=== PATIENT | male | born 1960 | race Caucasian/White ===

== ENCOUNTER 2019-07-01 15:01 | Inpatient (IN) | payer OTHER ==
[~2019-07-01] VITALS: Ht 175.3 cm; Wt 83.5 kg
[2019-07-01] MEDS ORDERED: HYDROCODONE/APAP 5-325MG TABLET PO ONE (16:15)
[2019-07-01] MEDS: LIDOCAINE HCL 2% 20 ML VIAL TP ONE ×2 (16:15→16:54)
[2019-07-01] MEDS ORDERED: LET TOPICAL SOLUTION 8 ML UDC TP ONE (16:15)
--- NOTE | 2019-07-01 16:15 | NUR ---
Dr macias at the bedside for MSE.
[2019-07-01] MEDS ORDERED: HYDROCODONE/APAP 5-325MG TABLET ONE (16:42)
[2019-07-01] MEDS ORDERED: SODIUM BICARBONATE 4.2 % (NEUT) 5 ML VIAL ONE (16:42)
[2019-07-01] MEDS ORDERED: LIDOCAINE HCL 2% 20 ML VIAL ONE (16:43)
[2019-07-01] MEDS ORDERED: LET TOPICAL SOLUTION 8 ML UDC ONE (16:43)
[2019-07-01] MEDS: SODIUM BICARBONATE 4.2 % (NEUT) 5 ML VIAL TP ONE ×2 (16:54→18:15)
--- NOTE | 2019-07-01 17:36 | NUR ---
Dr Pascual spoke to Dr Roy(Orthopedics), regarding pt's FA Lac.
[2019-07-01] MEDS ORDERED: CEFTRIAXONE 1 G in IV DEXTROSE 5% 50 ML IV ONE (18:00)
[2019-07-01] MEDS ORDERED: CEFTRIAXONE 1 G VIAL ONE (18:07)
[2019-07-01 18:09] LABS: BASOPHILS % (AUTO) 0.4 % (0.0-2.0); EOSINOPHILS # (AUTO) 0.1 K/uL (0.0-0.7); EOSINOPHILS % (AUTO) 1.1 % (0.0-7.0); HEMATOCRIT 41.7 % (36.7-47.1); HEMOGLOBIN 14.1 g/dL (12.5-16.3); LYMPHOCYTES # (AUTO) 0.8 K/uL (20.0-40.0); LYMPHOCYTES % (AUTO) 11.3 % (20.5-51.5); MEAN CORPUSCULAR HEMOGLOBIN 31.2 uug (23.8-33.4); MEAN CORPUSCULAR HGB CONC 34 g/dL (32.5-36.3); MEAN CORPUSCULAR VOLUME 91.8 fL (73.0-96.2); MONOCYTES # (AUTO) 0.5 K/uL (2.0-10.0); MONOCYTES % (AUTO) 6.5 % (0.0-11.0); NEUTROPHILS # (AUTO) 6.1 K/uL (1.8-8.9); NEUTROPHILS % (AUTO) 80.7 % (38.5-71.5); PLATELET COUNT (AUTO) 195 K/uL (152-348); RED BLOOD CELL COUNT(AUTO) 4.54 MIL/uL (4.06-5.63); WHITE BLOOD COUNT (AUTO) 7.5 K/uL (3.6-10.2)
[2019-07-01 18:19] LABS: CREATININE 1.2 mg/dL (0.6-1.3); POTASSIUM 4.3 mmol/L (3.5-5.1)
[2019-07-01 18:24] LABS: BILIRUBIN,TOTAL 0.3 mg/dL (0.2-1.0); TOTAL PROTEIN, SERUM 7.7 g/dL (6.4-8.2)
--- NOTE | 2019-07-01 20:00 | NUR ---
transfered to 3rd floor med surg via [facility] with no distress noted.
[2019-07-01] MEDS ORDERED: Z GUARD REMEDY PASTE 57 GM TUBE TOP PRN (20:45)
[2019-07-01] MEDS ORDERED: ZOLPIDEM 5 MG TABLET PO PRN (20:45)
[2019-07-01] MEDS ORDERED: ONDANSETRON 4 MG/2 ML VIAL IV PRN (20:45)
[2019-07-01 21:00] VITALS: BP 140/86
[2019-07-01] MEDS: MORPHINE SULFATE 2 MG/1 ML DISP.SYRIN IV PRN (21:45)
--- NOTE | 2019-07-01 22:00 | NUR ---
Received patient from ER via [facility], accompanied by ER nurse at around 2054. Pt is in stable condition, with L arm wrapped in Kerlix. Verbalized pain at 8/10, PRN pain medications given and appears to be effective at this time. All admission orders noted and carried out. All belongings accounted for. Full assessment done and documented. No skin issues other than L arm, unable to take any photos because advised to keep dressings in place until Ortho visit in AM. Kept comfortable. Oriented to facility and call light. Bed kept locked in place. Fall and safety precautions maintained. Will continue to monitor.
[2019-07-02] VITALS (8 sets, daily range): BP systolic 114–151; BP diastolic 78–90
[2019-07-02] MEDS: MORPHINE SULFATE 2 MG/1 ML DISP.SYRIN IV PRN (05:24)
[2019-07-02 07:06] LABS: BASOPHILS % (AUTO) 0.7 % (0.0-2.0); EOSINOPHILS # (AUTO) 0.2 K/uL (0.0-0.7); EOSINOPHILS % (AUTO) 2.8 % (0.0-7.0); HEMATOCRIT 40.9 % (36.7-47.1); HEMOGLOBIN 13.9 g/dL (12.5-16.3); LYMPHOCYTES # (AUTO) 1.4 K/uL (20.0-40.0); LYMPHOCYTES % (AUTO) 23.9 % (20.5-51.5); MEAN CORPUSCULAR HEMOGLOBIN 31.5 uug (23.8-33.4); MEAN CORPUSCULAR HGB CONC 34 g/dL (32.5-36.3); MEAN CORPUSCULAR VOLUME 92.9 fL (73.0-96.2); MONOCYTES # (AUTO) 0.6 K/uL (2.0-10.0); MONOCYTES % (AUTO) 10.2 % (0.0-11.0); NEUTROPHILS # (AUTO) 3.5 K/uL (1.8-8.9); NEUTROPHILS % (AUTO) 62.4 % (38.5-71.5); PLATELET COUNT (AUTO) 177 K/uL (152-348); RED BLOOD CELL COUNT(AUTO) 4.41 MIL/uL (4.06-5.63); WHITE BLOOD COUNT (AUTO) 5.7 K/uL (3.6-10.2)
[2019-07-02] MEDS ORDERED: POLYMYXIN B SULFATE 500,000 UNITS, BACITRACIN 50,000 UNITS, NORMAL SALINE 20 ML MC ONE ×3 (07:15)
[2019-07-02 07:23] LABS: BILIRUBIN,TOTAL 0.5 mg/dL (0.2-1.0); CREATININE 1.2 mg/dL (0.6-1.3); MAGNESIUM 1.9 mg/dL (1.8-2.4); PHOSPHOROUS 3.7 mg/dL (2.5-4.9); POTASSIUM 3.9 mmol/L (3.5-5.1); TOTAL PROTEIN, SERUM 7.2 g/dL (6.4-8.2)
--- NOTE | 2019-07-02 08:18 | NUR ---
Awake, alert, oriented x 4. LFA wound with dressing. NPO maintained. Consent for I & D signed by patient. To OR
[2019-07-02] MEDS ORDERED: VANCOMYCIN 1000 MG VIAL ONE (08:34)
[2019-07-02] MEDS ORDERED: FENTANYL CITRATE 100 MCG/2 ML AMPUL ONE (10:03)
[2019-07-02] MEDS ORDERED: KETOROLAC TROMETHAMINE 30 MG INJ ONE (10:06)
[2019-07-02] MEDS ORDERED: SEVOFLURANE 250 ML BOTTLE ONE (10:30)
[2019-07-02] MEDS ORDERED: MORPHINE SULFATE 2 MG/1 ML DISP.SYRIN IV PRN (10:30)
--- NOTE | 2019-07-02 11:30 | NUR ---
Received from recovery this S/P I&D of left arm. Awake, alert, oriented x4. Vital signs taken and recorded. LFA wound with sutures covered with Mepilex, dry and clean, elevated over pillow. IVF started as ordered. Started on liquids then advanced to regular diet.
[2019-07-02] MEDS: POTASSIUM CHLORIDE 20 MEQ in IV D5 1/2 NS 1000 ML 1,000 ML IV PRN (11:31)
[2019-07-02] MEDS ORDERED: LIDOCAINE-MPF 2% 5 ML VIAL MC ONE (15:19)
[2019-07-02] MEDS ORDERED: PROPOFOL 200 MG/20 ML BOTTLE IV ONE (15:19)
[2019-07-02] MEDS: HYDROCODONE/APAP 10-325 MG TABLET PO PRN (17:39)
[2019-07-02] MEDS ORDERED: CEFTRIAXONE 1 G in IV DEXTROSE 5% 50 ML IV SCH (18:00)
--- NOTE | 2019-07-02 18:29 | NUR ---
Complained of pain, [place] po given. LFA + pulses, good sensation, Elevated over pillow
--- NOTE | 2019-07-02 19:30 | NUR ---
RECEIVED PT AWAKE, ALERT AND ORIENTEDX4. PT IN NO ACUTE DISTRESS. IV INTACT. SAFETY AND COMFORT PROVIDED. ALL NEEDS ARE MET. WILL CONTINUE TO MONITOR.
[2019-07-03] MEDS: HYDROCODONE/APAP 10-325 MG TABLET PO PRN ×2 (00:58→10:33)
[2019-07-03] MEDS: POTASSIUM CHLORIDE 20 MEQ in IV D5 1/2 NS 1000 ML 1,000 ML IV PRN (01:03)
[2019-07-03 05:49] VITALS: BP 118/77
--- NOTE | 2019-07-03 05:50 | NUR ---
PT SLEPT INTERMITTENTLY. PT IN NO ACUTE DISTRESS. IV INTACT. PRESCRIBED MEDICATION GIVEN AND PT TOLERATED IT WELL. PAIN MANAGEMENT DONE.SAFETY AND COMFORT PROVIDED. ALL NEEDS ARE MET. WILL ENDORSE TO INCOMING NURSE FOR CONTINUITY OF CARE.
[2019-07-03 06:11] LABS: BASOPHILS % (AUTO) 0.3 % (0.0-2.0); EOSINOPHILS # (AUTO) 0.1 K/uL (0.0-0.7); EOSINOPHILS % (AUTO) 2.7 % (0.0-7.0); HEMATOCRIT 39.6 % (36.7-47.1); HEMOGLOBIN 13.2 g/dL (12.5-16.3); LYMPHOCYTES # (AUTO) 1.1 K/uL (20.0-40.0); LYMPHOCYTES % (AUTO) 23.8 % (20.5-51.5); MEAN CORPUSCULAR HEMOGLOBIN 31.1 uug (23.8-33.4); MEAN CORPUSCULAR HGB CONC 33 g/dL (32.5-36.3); MEAN CORPUSCULAR VOLUME 93.2 fL (73.0-96.2); MONOCYTES # (AUTO) 0.5 K/uL (2.0-10.0); MONOCYTES % (AUTO) 10.2 % (0.0-11.0); PLATELET COUNT (AUTO) 168 K/uL (152-348); RED BLOOD CELL COUNT(AUTO) 4.24 MIL/uL (4.06-5.63); WHITE BLOOD COUNT (AUTO) 4.7 K/uL (3.6-10.2)
[2019-07-03 06:24] LABS: MAGNESIUM 1.9 mg/dL (1.8-2.4); PHOSPHOROUS 3.3 mg/dL (2.5-4.9); POTASSIUM 4.3 mmol/L (3.5-5.1)
[2019-07-03 11:40] VITALS: BP 125/80
--- NOTE | 2019-07-03 15:23 | NUR ---
Patient discharged home in stable condition with no signs of distress; patient with stable vital signs ; patient educated on discharge instructions and refill of prescription.
[2019-07-03] MEDS ORDERED: ATORVASTATIN 10 MG TABLET PO SCH (21:00)
== END 2019-07-03 15:20 | disposition home or self-care (01) | DRG 909 ==
LOC: ER 15:01 → MEDSURG3 20:39
PROVIDERS: ADMIT Hospitalist; ATTEND Hospitalist
PROC: 0KQB0ZZ Repair Left Lower Arm and Wrist Muscle, Open Approach (ICD-10-PCS; principal; 2019-07-02)
DX: S51.822A Laceration with foreign body of left forearm, initial encounter (principal); W31.82XA Contact with other commercial machinery, initial encounter; Y93.89 Activity, other specified; Y92.89 Other specified places as the place of occurrence of the external cause; Z90.5 Acquired absence of kidney; I10 Essential (primary) hypertension; E78.5 Hyperlipidemia, unspecified; R73.9 Hyperglycemia, unspecified
CPT/HCPCS: 36415; 73090; 83735; 84100; 85025; 85730; A4217; A4649; A4663; G0378; J0696; J1885; J2270; J3010; J3370; J3480; J3490; J7060